=== PATIENT | male | born 2000 | race Caucasian/White ===

== ENCOUNTER 2022-04-01 01:33 | Emergency (ER) | payer SELFPAY ==
[~2022-04-01] VITALS: Ht 175.3 cm; Wt 93.0 kg
--- NOTE | 2022-04-01 01:35 | NUR ---
PT IN [facility]
[2022-04-01 01:40] VITALS: BP 101/52
--- NOTE | 2022-04-01 01:50 | NUR ---
FRANKLYN HANKS EXAMINING PT.
[2022-04-01 01:56] VITALS: BP 101/52
--- NOTE | 2022-04-01 01:56 | NUR ---
PATIENT BIB [place] [employer]. PATIENT EXAMINED BY DR. HANKS. PATIENT MEDICALLY CLEARED AND RELEASED IN CUSTODY IN STABLE CONDITION. ORIGINAL PRE-BOOK FORM GIVEN TO OFFICER SAJI.
== END 2022-04-01 01:56 ==
LOC: MED 01:33
CPT/HCPCS: 99283